=== PATIENT | female | born 1940 | race Caucasian/White ===

== ENCOUNTER → 2020-04-10 | Outpatient (CLI) | payer MEDICARE, OTHER | END | disposition home or self-care (01) | LOC: EDBD 11:41 → CFH 11:41 | PROVIDERS: ATTEND Emergency Medicine | DX: S09.90XS Unspecified injury of head, sequela (principal); W00.0XXA Fall on same level due to ice and snow, initial encounter; R42 Dizziness and giddiness; J34.89 Other specified disorders of nose and nasal sinuses; J32.0 Chronic maxillary sinusitis; X58.XXXD Exposure to other specified factors, subsequent encounter | CPT/HCPCS: 70450 ==